=== PATIENT | female | born 1935 | race Caucasian/White ===

== ENCOUNTER 2016-12-07 06:24 | Inpatient (IN) | payer MEDICARE, BC, MEDICAID ==
[~2016-12-07] VITALS: Ht 157.5 cm; Wt 97.3 kg
--- NOTE | ~2016-12-07 | HP ---
ADMIT: 12/07/2016 RM/LOC: 432 [facility] MR#: [id number] [address] [address] [place] [address] History and Physical SEX: F AGE: 81 : 1935 DATE OF SERVICE: 12/07/2016 CHIEF COMPLAINT: 1. Mental status changes, concern of possible sepsis. 2. Urinary tract infection. HISTORY OF PRESENT ILLNESS: Tiffany is an 81-year-old, white female, who [place], who presented to the [facility] in the evening hours of 12/06/2016 after she was found to have some mental status changes and actually passed out at the [facility] in [place]. When she presented to the [facility], she was found to have findings on the UA consistent with urinary tract infection and there were concerns about blood pressures down in the 80s and 90s. There was also some concern that she might be markedly hypoxemic with O2 sats in the 70s and 80s on room air. Because they felt that she was unstable and they were unable to care for her at [facility]. She was transferred to the [facility] Emergency Department. She is now admitted up to our medical floor for further management. Much of her history is obtained from her daughter, who was in the hospital room today. She notes that the [place], and actually went to one of the concerts that evening. She reports that around 3:30 or 3:45 this morning. She woke up to have a bowel movement and then passed out and that is when the nurse sent her to the [facility]. PAST MEDICAL HISTORY: Her past medical history is remarkable for: 1. Hypertension. 2. Hyperlipidemia. 3. Peripheral vascular disease. 4. Urinary incontinence. 5. Previous nephrectomy. 6. Kidney cancer. 7. Diabetes mellitus type 2, insulin dependent. 8. Osteoarthritis of her knees. 9. Parkinson's disease. 10.Eczema. 11.Depression. 12.History of urinary tract infections and urinary tract infection sepsis. PAST SURGICAL HISTORY: She has had a: 1. Cataract extraction. 2. Tonsillectomy and adenoidectomy. 3. Appendectomy. 4. Cholecystectomy. 5. Nephrectomy, right sided. 6. Exploratory laparoscopy. ALLERGIES: NONE. ADMIT: 12/07/2016 RM/LOC: 432 [facility] MR#: [id number] [address] [address] [facility] [place] [address] History and Physical SEX: F AGE: 81 : 1935 SOCIAL HISTORY: Again, she lives in [facility]. She is a lifetime nonsmoker. There is no alcohol or drug use. She is . MEDICATIONS: Her outpatient medications include: 1. Prilosec 20 mg daily. 2. Atorvastatin 10 mg at bedtime. 3. Cranberry supplement. 4. MiraLax. 5. Myrbetriq 50 mg daily. 6. Novolin 70/30, 18 units in the morning, and 8 units in the evening. 7. Fish oil 1000 mg daily. 8. Multivitamin daily. 9. Effexor 37.5 mg daily. 10.Nystatin powder applied to intertriginous areas twice daily. 11.Tylenol. 12.Ultram 100 mg t.i.d. 13.Lotrisone twice daily to the affected areas. 14.Blue Gel 4 times daily to the right knee. 15.Sinemet, though her Sinemet regimen is a bit confusing, we have to clarify this. 16.Dulcolax 10 mg suppository. 17.Cetaphil and Eucerin as needed to some skin areas. REVIEW OF SYSTEMS: Unobtainable due the patient's mental status. PHYSICAL EXAMINATION: VITAL SIGNS: Her most recent blood pressure is 119/53, pulse 103, respirations 20, temp 102.2. GENERAL: Awake and delirious, not complaining of any pain at this point, but certainly not oriented to person, place, or time. HEENT: Normocephalic and atraumatic. HEART: Regular rate and rhythm. No murmurs, gallops, or rubs. LUNGS: Clear to auscultation bilaterally. ABDOMEN: Markedly obese. She has a large laparotomy scar noted, and what palpates to be hernia about midway down that scar. The remainder of her abdominal exam is unremarkable. EXTREMITIES: No cyanosis, clubbing, or edema. LAB AND X-RAY DATA: Much of this is obtained from records from the [facility]. Chest x-ray shows infiltrate or atelectasis in the right medial lung bases. Lactic acid was 1.5. UA was remarkable for 100 mg/dL of glucose, large blood, large leukocyte esterase, and too numerous to count white cells on the micro. Her white count was 11.5, hemoglobin 12.6, hematocrit 40.9. An ABG done there was 7.41 with a pCO2 of 35, PO2 of 220, and bicarb of 22.9. CMP remarkable for creatinine of 1.6. CRP of 1.4. Albumin of 2.9. ASSESSMENT AND PLAN: 1. Urinary tract infection. 2. Sepsis. ADMIT: 12/07/2016 RM/LOC: 432 [facility] MR#: [id number] [address] [place] [id number] [place] [address] History and Physical SEX: F AGE: 81 : 1935 3. Hypoxemia. 4. Diabetes mellitus type 2. 5. Diarrhea. The patient has been having quite a bit of diarrhea since she has been here. 6. Parkinson's disease. 7. Hypertension. 8. Hyperlipidemia. 9. History of kidney cancer, status post right-sided nephrectomy. 10.Obesity. PLAN: Tiffany has been admitted to our 4th floor. She and her family requests that she be a DNR/DNI. She has been started on Levaquin and Zosyn. We will be checking blood cultures, urine culture, procalcitonin. We will continue her on her long-acting NovoLog and supplement that with a supplemental insulin scale. We will also check some stool studies on her. Tom Mercedes MD/ lucia JOB #: [id number] CC: Tom Mercedes, Attending Physician Tom Mercedes, Family Physician
--- NOTE | ~2016-12-07 | DS ---
ADMIT: 12/07/2016 RM/LOC: 431 [facility] MR#: [id number] [address] [address] [place] [address] Discharge Summary SEX: F AGE: 81 : 1935 ADMISSION DATE: 12/07/2016 DISCHARGE DATE: 12/13/2016 ADMITTING DIAGNOSES: 1. Urinary tract infection. 2. Sepsis. 3. Hypoxemia. 4. Diabetes mellitus, type 2. 5. Diarrhea. 6. Parkinson's disease. 7. Hypertension. 8. Hyperlipidemia. 9. History of kidney cancer, status post right-sided nephrectomy. 10.Obesity. DISCHARGE DIAGNOSES: 1. Urinary tract infection with presumptive Proteus and E. coli (Escherichia coli). Final urine culture is read out as contaminated. 2. Severe sepsis with septic shock secondary to urinary tract infection. Blood cultures grew out Proteus and E. coli (Escherichia coli). 3. Acute kidney injury with creatinine resolved to 1.8. 4. Short duration atrial fibrillation with rapid ventricular response. Chemically cardio converted back to sinus with amiodarone. 5. Left bundle branch block. 6. Thrombocytopenia, reactive. 7. Reactive leukocytosis, resolving. 8. Diabetes mellitus, type 2. 9. Parkinson's disease. 10.Dysphagia. 11.Probable obstructive sleep apnea. 12.Previous right-sided nephrectomy for kidney cancer. 13.Hyperlipidemia. 14.Hypertension. 15.Obesity. PROCEDURES: None. CONSULTATIONS: 1. Emil Charles MD with Pulmonology, consulted 12/08/2016. 2. Critical Care Medicine, consulted 12/08/2016. 3. Tracey Reyes M.D. [facility], consulted 12/09/2016. HISTORY AND PHYSICAL EXAM: Tiffany is an 81-year-old white female who normally resides at the [facility] [place], [place] who presented to the [facility] in the evening hours of 12/06/2016 after she was found to have some altered mental status and passed out at the [facility]. When she presented to the [facility] ER, she was found to have UA findings consistent with urinary tract infection as well as blood pressures down into the 80s and 90s systolic. There was also concerns that she had 02 sats down into the 70s and ADMIT: 12/07/2016 RM/LOC: 431 [facility] MR#: [id number] [address] [address] TIFFANY HAMM [place] [id number] Discharge Summary SEX: F AGE: 81 : 1935 80s. Because of her possibly critical condition, it was felt that she was unable to be cared for at the [facility] and was transferred to [facility] Emergency Department and was admitted to our ICU for further management. On her initial exam, her initial blood pressure was 119/53, pulse 103, respirations 20, and temp a 102.2. She did have some altered mental status, very somnolent, and not oriented to person, place, or time. Lab showed a reactive leukocytosis. HOSPITAL COURSE: Initially, Tiffany was admitted to the PCU floor and started on Levaquin and Zosyn. Over the an initial 12-24 hours of admission, she had problems maintaining her blood pressure and was transferred down to the ICU. She was bolused with IV fluids and started on Levophed to maintain her pressures. Dr. Charles with Critical Care Medicine was consulted. In the subsequent 24-48 hours, Tiffany had a brief episode of atrial fibrillation with rapid ventricular response. She was started on heparin drip and started on an amiodarone drip. Within an hour or two of the amiodarone drip, she converted back to sinus. Blood cultures obtained from the [facility] ultimately grew out gram-negative rods including E. coli and Proteus mirabilis. Both of those colonies were resistant to Levaquin and as such, the Levaquin was subsequently discontinued. The Zosyn was continued. Tiffany defervesced within 24 hours of admission and within approximately 36-72 hours of her admission, we were able to wean her off of the pressors. She was transferred back out of the ICU back up to the medical floor and had no significant events aside from a little bit of wheezing once back on the medical floor. She did have a little bit of dysphagia and had a modified barium swallow which indicated a need for a modified diet to include a mechanical soft diet, no mixed consistencies, nectar thickened liquids, and meds in puree. By the morning of 12/13/2016, Tiffany was felt safe for discharge with further management as an outpatient having completed a full six days of intravenous antibiotics. DISCHARGE CONDITION: Her discharge condition is poor. Her overall health is ADMIT: 12/07/2016 RM/LOC: 431 [facility] MR#: [id number] [address] [place] [phone] [place] [address] Discharge Summary SEX: F AGE: 81 : 1935 poor. DISPOSITION: She can be discharged back to the [facility]. DISCHARGE MEDICATIONS: Please refer to her discharge MAR. Of note, I am awaiting final recommendation from ALAN and Cardiology on her amiodarone and we will have her complete an additional seven days of Augmentin 500 mg b.i.d. FOLLOW UP: I have asked that she follow up with her primary care provider within one week of discharge. We will set her up with an outpatient sleep study as it was suspected that she had obstructive sleep apnea. Tom Mercedes MD/ maria r JOB #: [id number] CC: Tom Mercedes MD, Attending Physician Tom Mercedes MD, Family Physician
--- NOTE | ~2016-12-07 | ECH ---
Transthoracic Echocardiography Report (TTE) Demographics Patient Name TIFFANY HAMM Date of Study 12/11/2016 Patient Number [id number] Visit Number [id number] Date of 1935 Room Number 313 Accession Number [id number] Gender Female Age 81 year(s) Referring Eric Gamboa MD Valve Liner Rubber Mariah Lacy Physician Daren Garcia MD [facility] Physician Interpreting Eric Gamboa MD Loading Inspector Physician Supervising Ordering Physician Eric Gamboa MD, MD/P Nurse Stress Production Generalist Conclusions Contractility Score Summary Normal Left Ventricular contractility was noted. Summary Technically adequate exam. The estimated left ventricular ejection fraction is 50-55%. There is mild aortic regurgitation by color Doppler. Mild-moderate tricuspid regurgitation by color Doppler. There is moderate pulmonary hypertension. The pulmonary pressure (RVSP) is 48 mmHg. Pleural effusion present. Procedure Type of Study TTE procedure:Echo Complete SF. Procedure Date Date: 12/11/2016 Start: 09:44 AM Technical Quality: Adequate visualization Indications:Paroxysmal a-fib, Hypertension, Diabetes and Left Bundle Branch Block (LBBB). Appropriate Use Criteria: 9 Height: 62 inches Weight: 219 pounds BSA: 1.99 m Rhythm: Sinus with bundle branch block HR: 60 bpm BP: 121/56 mmHg M-Mode/2D Measurements LV Diastolic Dimension: 4.8 cm LV Systolic Dimension: 4.11 cm LV Septum Diastolic: 0.91 cm LV PW Diastolic: 0.93 cm AO Root Dimension: 2.77 cm Cardiac Output: 4.08 l/min LA Dimension: 3.1 cm Cardiac Index: 2.05 l/min*m RV Diastolic Dimension: 2.99 cm LA volume index: 30 ml/m LVOT: 1.94 cm LVOT VTI: 22.99 cm RV Base: 3.5 cm LV Stroke volume: 67.92 ml RV Mid: 2.2 cm LV Stroke volume index: 34.13 ml/m TAPSE: 2.8 cm TDI-S': 11 cm/s Doppler Measurements AV Peak Velocity: 1.74 m/s MV Peak E-Wave: 1.16 m/s AV Peak Gradient: 12.05 mmHg MV Peak A-Wave: 1.2 m/s AV Mean Gradient: 6.63 mmHg MV E/A Ratio: 0.96 LVOT Peak Velocity: 0.96 m/s MV P1/2t: 70.9 msec AV Area (Continuity):1.74 cm AV P1/2t: 543.6 msec MV Deceleration Time: 244.5 msec TR Velocity:3.34 m/s MV Area (PHT): 3.1 cm TR Gradient:44.62 mmHg PV Peak Velocity: 1.08 m/s Estimated RAP:3 mmHg PV Peak Gradient: 4.63 mmHg Estimated RVSP: 48 mmHg Estimated PASP: 47.62 mmHg E' Septal Velocity: 0.05 m/s A' Septal Velocity: 0.07 m/s E' Lateral Velocity: 0.06 m/s A' Lateral Velocity: 0.04 m/s RA Area: 16.91 cm Findings Left Ventricle Normal left ventricle size and function. Diastolic assessment reveals normal relaxation. Right Ventricle Normal right ventricle structure and function. Left Atrium Normal left atrial size. Right Atrium Normal right atrial size. Mitral Valve Moderate mitral annular calcification. Trivial mitral regurgitation by color Doppler. Aortic Valve The aortic valve is moderately sclerotic. There is mild aortic regurgitation by color Doppler. Tricuspid Valve Normal tricuspid valve structure and function. Mild-moderate tricuspid regurgitation by color Doppler. There is moderate pulmonary hypertension. The pulmonary pressure (RVSP) is 48 mmHg. Pulmonic Valve The pulmonic valve is not well visualized. Pericardial Effusion No evidence of pericardial effusion. Miscellaneous Visualized portions of the aortic root and ascending aorta appear normal in size. Pleural Effusion Pleural effusion present. Contractility Score LV regional wall motion:(0-Non visualized 1-Normal 2-Hypokinesis 3-Akinesis 4-Dyskinesis 5-Aneurysm) Signature
--- NOTE | 2016-12-08 06:16 | ER ---
ADMIT: 12/07/2016 RM/LOC: ER [facility] MR#: [id number] [address] [place] [id number] [place], [place] [address] TIFFANY HAMM [address] [place], [place] [address] [address] Emergency Room Report SEX: F AGE: 81 : 1935 DATE: 12/07/2016 CHIEF COMPLAINT: Concern of possible sepsis and sent from [facility]. HISTORY OF PRESENT ILLNESS: The patient is an 81-year-old female, lives in a senior care in [place] and was taken to [facility] this evening with concerns that she was not acting right and was slightly confused and had a fever. From my understanding, the workup there was done because they believed that the patient could be septic. Apparently, her saturations were low in the upper 70s and low 80s on room air and there was concern that her blood pressure was low and she arrived with systolics in the 80s and 90s. They did do a thorough sepsis workup there and placed her on supplemental oxygen with a non-rebreather. They also gave her a liter of normal saline and started Zosyn. From my understanding, the provider taking care over there was not comfortable keeping her in their facility and wanted her transferred to our hospital. The patient does not provide me much history and the daughter does provide the majority of the history for me at this time. REVIEW OF SYSTEMS: A 10-point review of systems is done and otherwise negative except as in HPI. PAST MEDICAL HISTORY: Significant for insulin-dependent diabetes, hypertension, hyperlipidemia, GERD, Parkinson's, previous renal cell cancer with right nephrectomy, and CVA. PREVIOUS SURGERIES: Appendectomy, cholecystectomy, tonsillectomy, , and nephrectomy. MEDICATIONS: See nurse's note. She is on; 1. Insulin. 2. Carbidopa. ALLERGIES: SEE NURSE'S NOTE. SOCIAL HISTORY: Lives in a senior care. PHYSICAL EXAMINATION: VITAL SIGNS: Initial blood pressure at our facility was 122/48, heart rate 113, respirations 36, temperature 104.4, and saturations 98% on 4 L. GENERAL: She is not in any distress. She is alert, able to track well. HEENT: Head is atraumatic. Airway is patent. HEART: Tachycardic. LUNGS: Clear to auscultation. ABDOMEN: Obese, soft. SKIN: Warm and dry. EXTREMITIES: She does have a tremor in all 4 extremities from her Parkinson's. LABORATORY AND IMAGING DATA: We did not repeat labs here as they were just ADMIT: 12/07/2016 RM/LOC: [facility] MR#: [id number] [address] [address] [place] [address] Emergency Room Report SEX: F AGE: 81 : 1935 done prior to arrival. Her CBC showed a white count of 11.5, hemoglobin of 12.6, platelets of 207. Her sodium was 142, potassium 4.3, carbon dioxide 24, BUN 43, glucose 105, creatinine 1.6, lactic acid was 1.55. Urinalysis did appear infected and was turbid with large leukocyte esterase. Chest x-ray showed atelectasis versus maybe an infiltrate in the right medial base. ABG showed a pH of 7.4; pCO2 of 35.5; and a PO2 of 220, and I am not exactly sure of the setting she was on for supplemental oxygen at that time. EMERGENCY DEPARTMENT COURSE: As the patient had a thorough workup prior to arrival and has already been given a liter of normal saline and her blood pressure was fine here and Zosyn, no additional workup was done in our facility. I did contact Dr. Mercedes, who is on for [facility], who very graciously agrees to admit the patient for further management. She is admitted in stable condition. DIAGNOSES: 1. Urinary tract infection. 2. Altered mental status. 3. Possible early sepsis. Maximo To MD/ lucia JOB #: [id number] CC: Maximo To MD, Attending Physician
--- NOTE | 2016-12-12 10:33 | CO ---
ADMIT: 12/07/2016 RM/LOC: 313 [facility] MR#: [id number] [address] [address] [place] [address] Consultation SEX: F AGE: 81 : 1935 DATE OF CONSULTATION: 12/08/2016 ATTENDING PHYSICIAN: Tom Mercedes CONSULTING PHYSICIAN: Emil Charles MD REASON FOR EVALUATION: Regarding this lady's episodes of sepsis, now with possible REM behavioral disorder, Parkinson's, choking episodes, and urosepsis. HISTORY OF PRESENT ILLNESS: This is an 81-year-old lady with advanced Parkinson's, has been living actually at her daughter's house and she noted that she did have episodes of significant movements at nighttime as well as acting out her dreams. She now was found to have an episode living in her intermediate. She is from [place], [place], and apparently presented to the [facility] after the intermediate in [place] found that she was "passed out" at the intermediate, and presented with probable urosepsis due to the dysuria, but she is not really a good historian to tell us if she is having much pain on urination. She does not really track very well on the questions we ask her, and her daughter says that she has episodes at home before she went to the intermediate where she would be acting out her dreams at home. She is now hypotensive, in the 90s, and this seems to have improved now. She is on room air at this time and her saturations are above 90%. She says she has no sleep apnea that she knows of. PAST MEDICAL HISTORY: She has had significant past history of: 1. Hypertension. 2. Elevated lipids. 3. Peripheral vascular disease. 4. Urinary incontinence. 5. Previous nephrectomy for kidney cancer. 6. Diabetes, insulin-dependent. 7. Osteoarthritis. 8. Parkinson's. 9. Depression. 10.Eczema. 11.History of multiple UTI's in the past. PAST SURGICAL HISTORY: 1. Cataracts. 2. Tonsillectomy. 3. Appendectomy. 4. Cholecystectomy. 5. Nephrectomy. 6. Exploratory laparoscopy. ALLERGIES: NONE. FAMILY HISTORY: Negative for TB or emphysema. ADMIT: 12/07/2016 RM/LOC: 313 [facility] MR#: [id number] [address] [address] [facility] [place] [id number] Consultation SEX: F AGE: 81 : 1935 SOCIAL HISTORY: She is a lifelong nonsmoker. No alcohol or history of any other drug abuse. She is . Her daughter and her brother are with her here in the hospital. MEDICATIONS: Medications at the intermediate included: 1. Prilosec. 2. Atorvastatin. 3. Cranberry. 4. MiraLax. 5. Myrbetriq. 6. Novolin. 7. Fish oil. 8. Multivitamin. 9. Effexor. 10.Nystatin. 11.Tylenol. 12.Ultram. 13.Lotrisone. 14.Blue gel. 15.Sinemet. 16.Dulcolax. 17.Cetaphil. REVIEW OF SYSTEMS: NEUROLOGIC: She has episodes of choking, but no real headaches. : She has had a history of UTI multiple times. Denies any dysuria at this time. CARDIAC: She has no history of any heart disease that she knows of. RESPIRATORY: No recent cold, cough, or flu-like symptoms. SKIN: No rashes. HEMATOPOIETIC: Denies any anemia although her white count today is 53,000 and platelets are low at 126. PERTINENT LABORATORY DATA: Sodium 143, potassium 3.9, chloride 110, bicarb is 19, BUN 53, creatinine 2.6. White count of 53,000, platelets 122. Lactate is 33 and procalcitonin is 126, markedly elevated. The x-ray demonstrated some ground-glass changes, increased heart size, and there are marked rotational changes on today's film. Yesterday's film does demonstrate increased heart size, mild tracheal deviation. Urinalysis showed large leukocyte esterase and too numerous to count. PHYSICAL EXAMINATION: GENERAL: Shows a well-developed, well-nourished lady, morbidly obese, not able to really track well. Since she has been choking on food occasionally, seems to be not going down the right tube and she is having episodes of this more recently. HEENT: No cervical adenopathy. She has Mallampati class II. The eyes are round and reactive. I do not see any jaundice. Ears, tympanic membranes ADMIT: 12/07/2016 RM/LOC: 313 [facility] MR#: [id number] [address] [place] [address] [facility] [place] [place] [address] Consultation SEX: F AGE: 81 : 1935 intact. CHEST: Good breath sounds bilaterally. Few crackles on the bases. HEART: She has regular rhythm. ABDOMEN: I do not detect any masses in the abdomen. It is obese, soft. EXTREMITIES: Has 2+ edema. No clubbing, cyanosis, or pallor. RECTAL/PELVIC: Deferred. NEUROLOGIC: Intact. IMPRESSION: 1. Sepsis related to urinary tract sepsis at this time with recurrence. 2. Choking episodes, probable dysfunction related to her Parkinson's. 3. 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 4. Hypoxia, cannot rule out a sleep apnea, either central or obstructive. 5. Previous kidney cancer and recent nephrectomy. 6. Renal dysfunction, elevated white count. 7. Low platelet count with elevated lactate and procalcitonin. 8. Renal failure with creatinine of 2.6 at this time. RECOMMENDATIONS: Recommendations now would be to proceed with swallow evaluation and continue the fluid evaluations and renal evaluation. Hold off on any CAT scans at this time given her renal dysfunction. I will try to give her some melatonin tonight for the like treatment. She may need Klonopin for treatment of the RBD if it becomes a problem. We will await the sepsis culture and chest x-ray. Procalcitonin and the lactate repeated in the morning, which are both elevated. She may need a sleep study at some point. Monitor her oxygen level prior to discharge. Emil Charles MD/ lucia JOB #: [id number] CC: Tom Mercedes, Attending Physician Tom Mercedes, Family Physician
[2016-12-14] MEDS ORDERED: LIPITOR DPS10 MG PO (11:27)
[2016-12-14] MEDS ORDERED: MELATONIN3 MG PO (11:27)
[2016-12-14] MEDS ORDERED: PROTONIX40 MG PO (11:28)
[2016-12-14] MEDS ORDERED: OMEGA 3 1,0001 EACH PO (11:28)
[2016-12-14] MEDS ORDERED: MIRALAX17 GM PO (11:28)
[2016-12-14] MEDS ORDERED: SINEMET CR 25-1 EACH PO (11:29)
[2016-12-14] MEDS ORDERED: THERAPEUTIC MUL1 TAB PO (11:29)
[2016-12-14] MEDS ORDERED: SINEMET 25-2501 EACH PO (11:29)
[2016-12-14] MEDS ORDERED: DUONEB DPS3 ML IH (11:29)
[2016-12-14] MEDS ORDERED: HUMULIN 70100 UNIT/1 SQ ×2 (11:30)
[2016-12-14] MEDS ORDERED: ANALGESIC BALM30 GM TP (11:33)
[2016-12-14] MEDS ORDERED: EUCERIN CREME120 GM TP (11:34)
[2016-12-14] MEDS ORDERED: LOTRISONE DPS45 GM TP (11:34)
[2016-12-14] MEDS ORDERED: MYCOSTATIN PWD15 GM TP (11:34)
[2016-12-14] MEDS ORDERED: DULCOLAX-DPS10 MG PR (11:35)
[2016-12-14] MEDS ORDERED: TYLENOL DPS325 MG PO (11:35)
[2016-12-14] MEDS ORDERED: CRANBERRY250 MG PO (11:39)
[2016-12-14] MEDS ORDERED: EFFEXOR XR37.5 M1 PO (11:39)
[2016-12-14] MEDS ORDERED: CETAPHIL237 ML TP (11:40)
[2016-12-14] MEDS ORDERED: GLUCAGON EMERGEN1 MG IM (11:40)
--- NOTE | 2016-12-19 10:26 | CO ---
ADMIT: 12/07/2016 RM/LOC: 313 [facility] MR#: [id number] [address] [id number] [place] [address] Consultation SEX: F AGE: 81 : 1935 DATE OF CONSULTATION: 12/09/2016 ATTENDING PHYSICIAN: Tom Mercedes CONSULTING PHYSICIAN: Tracey Reyes MD REASON FOR CONSULTATION: Atrial fibrillation, new onset. HISTORY OF PRESENT ILLNESS: Ms. Allen is an 81-year-old white female, whom I asked to consult on at the request of Dr. Emil Charles and Dr. Tom Mercedes for atrial fibrillation. She per the chart presented on the , with signs of mental status changes, passing out at the intermediate in [place]. [place] [employer] [place]. assisted noted that she went to the bathroom and passed out. Her mental status is off a little bit per her daughter, and she is unable to answer questions appropriately. PAST MEDICAL HISTORY: By the chart review includes hypertension, hyperlipidemia, peripheral vascular disease, urinary incontinence, previous nephrectomy, kidney cancer, diabetes, osteoarthritis, Parkinson's, eczema, depression, history of UTIs with urosepsis. PAST SURGICAL HISTORY: She has also had cataracts, tonsillectomy, appendectomy, cholecystectomy, right-sided nephrectomy, and exploratory laparotomy. ALLERGIES: INCLUDE NONE. SOCIAL HISTORY: She lives at the [facility]. Nonsmoker. She is . FAMILY HISTORY: There is no heritable premature coronary artery disease per the daughter's history. MEDICATIONS: Reviewed per the MAR and listed separately. REVIEW OF SYSTEMS: Unobtainable due to her altered mental status. PHYSICAL EXAMINATION: VITAL SIGNS: Her blood pressure is 99/62, with a pulse of 130, her temperature is 98.8, weight today is 186 pounds. GENERAL: She is a pleasant well-nourished, well-developed white female. She is somewhat fidgety. NECK: Shows brisk carotid upstrokes. No JVD. HEART: Irregular. LUNGS: Clear. ABDOMEN: Soft. EXTREMITIES: Show no cyanosis, clubbing, with trace pretibial edema noted bilaterally. MUSCULOSKELETAL: Grossly appear intact. NEUROLOGIC: Grossly appear intact. ADMIT: 12/07/2016 RM/LOC: 313 [facility] MR#: [id number] [address] [address] [facility] [place] [address] Consultation SEX: F AGE: 81 : 1935 SKIN: Appears clean, dry, and intact. LABORATORY AND ANCILLARY DATA: Show EKG with atrial fibrillation that occurred sometime yesterday afternoon. Magnesium is 1.7, potassium is 3.3, creatinine is 2.1, platelet count is 75,000. Her hemoglobin is 11.0, white blood cell count is 32,000. ASSESSMENT AND PLAN: 1. New-onset atrial fibrillation. 2. Urosepsis. 3. Hypokalemia. 4. Hypomagnesemia. 5. Thrombocytopenia. We will start her on amiodarone drip with a bolus, anticoagulate with heparin if okay with her primary and Critical Care Medicine. We will replace her electrolytes and monitor her response. Tracey Reyes MD/ lucia JOB #: [id number] CC: Tom Mercedes, Attending Physician Tom Mercedes, Family Physician
== END 2016-12-13 15:38 | DRG 871 ==
LOC: ER 06:24 → 3ICU 07:13 → 4PCU 07:13 → 3ICU 18:17 → 4PCU 12-10 09:49
PROVIDERS: ADMIT Family Medicine
PROC: 3E033XZ Introduction of Vasopressor into Peripheral Vein, Percutaneous Approach (ICD-10-PCS; principal; 2016-12-07)
PROC: 5A09357 Assistance with Respiratory Ventilation, Less than 24 Consecutive Hours, Continuous Positive Airway Pressure (ICD-10-PCS; 2016-12-11)
DX: A41.9 Sepsis, unspecified organism (principal); R65.21 Severe sepsis with septic shock; N17.9 Acute kidney failure, unspecified; F05 Delirium due to known physiological condition; E11.51 Type 2 diabetes mellitus with diabetic peripheral angiopathy without gangrene; G20 Parkinson's disease; D69.6 Thrombocytopenia, unspecified; N39.0 Urinary tract infection, site not specified; B96.4 Proteus (mirabilis) (morganii) as the cause of diseases classified elsewhere; B96.20 Unspecified Escherichia coli [E. coli] as the cause of diseases classified elsewhere; M25.512 Pain in left shoulder; I44.7 Left bundle-branch block, unspecified; I48.91 Unspecified atrial fibrillation; E87.6 Hypokalemia; E83.42 Hypomagnesemia; G47.33 Obstructive sleep apnea (adult) (pediatric); F02.80 Dementia in other diseases classified elsewhere, unspecified severity, without behavioral disturbance, psychotic disturbance, mood disturbance, and anxiety; R09.02 Hypoxemia; R13.10 Dysphagia, unspecified; R32 Unspecified urinary incontinence; E66.9 Obesity, unspecified; Z68.37 Body mass index [BMI] 37.0-37.9, adult; M17.0 Bilateral primary osteoarthritis of knee; L30.9 Dermatitis, unspecified; F32.9 Major depressive disorder, single episode, unspecified; I10 Essential (primary) hypertension; E78.5 Hyperlipidemia, unspecified; K21.9 Gastro-esophageal reflux disease without esophagitis; Z85.528 Personal history of other malignant neoplasm of kidney; Z90.5 Acquired absence of kidney; Z86.73 Personal history of transient ischemic attack (TIA), and cerebral infarction without residual deficits; Z79.4 Long term (current) use of insulin; Z66 Do not resuscitate